=== PATIENT | female | born 1970 | race Caucasian/White ===

== ENCOUNTER → 2016-11-17 | Outpatient (CLI) | payer BC ==
--- NOTE | 2016-11-17 16:37 | MAMMOGRAPHY REPORT ---
BILATERAL DIGITAL SCREENING MAMMOGRAM TOMOSYNTHESIS WITH CAD: 11/17/2016 CLINICAL HISTORY: Routine screening examination. TECHNIQUE: Breast tomosynthesis in addition to standard 2D mammography was performed. Current study was also evaluated with a Computer Aided Detection (CAD) system. COMPARISON: Comparison is made to exams dated: 11/12/2015 mammogram, 11/09/2014 mammogram, 11/06/2013 m ammogram - [facility], and 08/30/2012 mammogram - [facility]. BREAST COMPOSITION: The tissue of both breasts is heterogeneously dense, which may obscure small ma sses. FINDINGS: There are 2 questionable areas of architectural distortion in the lateral posterior left breast, only seen on the CC views (tomosynthesis slices 28/82 and 43/82), for which additional spot compression tomosynthesis HD views and possibly ultrasound are recommended. No other suspicious mass, architectural distortion or cluster of microcalcifications is seen bilater ally. IMPRESSION: ACR BI-RADS CATEGORY 0: INCOMPLETE EVALUATION: NEED ADDITIONAL IMAGING EVALUATION The 2 areas of questionable architectural distortion in the lateral posterior left breast need addit ional evaluation. The patient will be called to schedule an appointment. Approximately 10% of breast cancers are not detected with mammography. A negative mammographic repor t should not delay biopsy if a clinically suggestive mass is present. Ashli Mathew M.D. ay/:11/17/2016 15:56:49 Sanitation Director: Elizabeth WHEELER(Danii)(Andrew), [facility] letter sent: Addl Imaging 0 BI-RADS Code: ACR BI-RADS Category 0: Incomplete Evaluation: Need Additional Imaging Evaluation
== END | disposition home or self-care (01) ==
LOC: C.MAMM 08:03
PROVIDERS: ATTEND Obstetrics & Gynecology
DX: Z12.31 Encounter for screening mammogram for malignant neoplasm of breast (principal); N64.89 Other specified disorders of breast

== ENCOUNTER → 2016-11-27 | Outpatient (CLI) | payer BC ==
--- NOTE | 2016-12-01 07:36 | MAMMOGRAPHY REPORT ---
UNILATERAL LEFT DIGITAL DIAGNOSTIC MAMMOGRAM TOMOSYNTHESIS: 11/27/2016 CLINICAL HISTORY: Callback from screening mammogram for questionable architectural distortion in the left breast. TECHNIQUE: Breast tomosynthesis in addition to standard 2D mammography was performed. Left CC and MLO 2-D and tomosynthesis spot compression views were obtained. COMPARISON: Comparison is made to exams dated: 11/17/2016 mammogram, 11/12/2015 mammogram, 11/06/2013 mammogram, 11/09/2014 mammogram - [facility], and 08/30/2012 mammogram - [facility]. BREAST COMPOSITION: The tissue of the left breast is heterogeneously dense, which may obscure small masses. FINDINGS: The 2 areas of possible architectural distortion seen within the left lateral breast on t he cc tomosynthesis images do not persist on the additional spot compression views, with appearance of these regions similar to prior exams on the additional views. The tissue in this region has the appearance of normal fibroglandular tissue without suspicious masses or areas of architectural disto rtion seen. Findings are benign and most compatible with normal fibroglandular tissue. IMPRESSION: ACR BI-RADS CATEGORY 2: BENIGN The questionable areas of architectural distortion in the left lateral breast do not persist on the additional views. Findings are benign and most compatible with normal fibroglandular tissue. There is no mammographic evidence of malignancy. A 1 year screening mammogram is recommended. The patien t has been verbally notified of the results. Approximately 10% of breast cancers are not detected with mammography. A negative mammographic repor t should not delay biopsy if a clinically suggestive mass is present. Asya Hermosillo M.D. ah/:11/27/2016 11:41:15 Geometry Professor: Elizabeth Alcantara RT(Danii)(Andrew), [facility] letter sent: Normal 11/09 BI-RADS Code: ACR BI-RADS Category 2: Benign
== END | disposition home or self-care (01) ==
LOC: C.MAMM 11:19
PROVIDERS: ATTEND Obstetrics & Gynecology
DX: R92.8 Other abnormal and inconclusive findings on diagnostic imaging of breast (principal)

== ENCOUNTER → 2017-02-11 | Outpatient (CLI) | payer BC ==
[2017-02-11 12:57] LABS: BASO % 0.4 %; BASO ABS # 0.03 K/uL (0-0.2); COMPLETE YES; EOS % 1.3 %; HEMATOCRIT 41.2 % (37-47); IG% 0.1 %; LYMPH % 21.4 %; LYMPH ABS # 1.45 K/uL (1.2-3.4); MEAN CELL VOLUME 80.6 fL (80-100); MEAN CORPUSCULAR HEMOGLOBIN 27.2 pg (25-34); MEAN CORPUSCULAR HGB CONC 33.7 g/dl (32-36); MEAN PLATELET VOLUME 11.6 fL (7.4-10.4); MONO % 7.8 %; PLATELET COUNT 193 K/uL (130-400); RED BLOOD COUNT 5.11 M/uL (4.2-5.4); WHITE BLOOD COUNT 6.79 K/uL (4.8-10.8)
[2017-02-11 13:21] LABS: BLOOD UREA NITROGEN 12 mg/dl (7-18); CALCIUM 8.7 mg/dl (8.5-10.1); CARBON DIOXIDE 24 mmol/L (21-32); CHLORIDE 112 mmol/L (98-107); CREATININE 0.91 mg/dl (0.60-1.20); GLUCOSE 92 mg/dl (70-99); SODIUM 142 mmol/L (136-145)
[2017-02-11 13:42] LABS: CHOLESTEROL 162 mg/dl (0-200); CHOLESTEROL/HDL RATIO 2.9; HDL CHOLESTEROL 55 mg/dl; LDL CHOLESTEROL CALCULATED 94 mg/dl; THYROID STIMULATING HORMONE 0.906 uIu/ml (0.300-4.500); TRIGLYCERIDES 65 mg/dl (0-150); VERY LOW DENSITY LIPOPROT CALC 13 mg/dl
== END | disposition home or self-care (01) ==
LOC: C.LABBFT 08:07
PROVIDERS: ATTEND Nurse Practitioner
DX: R53.83 Other fatigue (principal); Z13.6 Encounter for screening for cardiovascular disorders

== ENCOUNTER → 2017-11-22 | Outpatient (CLI) | payer BC ==
--- NOTE | 2017-11-22 14:48 | MAMMOGRAPHY REPORT ---
BILATERAL DIGITAL SCREENING MAMMOGRAM TOMOSYNTHESIS WITH CAD: 11/22/2017 CLINICAL HISTORY: Routine screening. Patient has no complaints. TECHNIQUE: Breast tomosynthesis in addition to standard 2D mammography was performed. Current study was also evaluated with a Computer Aided Detection (CAD) system. COMPARISON: Comparison is made to exams dated: 11/17/2016 mammogram, 11/27/2016 mammogram, 11/12/2015 ma mmogram, 11/09/2014 mammogram, 11/06/2013 mammogram - [facility], and 08/30/2012 mamm ogram - [facility]. BREAST COMPOSITION: The tissue of both breasts is heterogeneously dense, which may obscure small mas ses. FINDINGS: The parenchymal pattern is unchanged. No developing mass, architectural distortion or clus ter of suspicious microcalcifications is seen in either breast. IMPRESSION: ACR BI-RADS CATEGORY 2: BENIGN There is no mammographic evidence of malignancy. A 1 year screening mammogram is recommended. The pa tient will receive written notification of the results. Approximately 10% of breast cancers are not detected with mammography. A negative mammographic report should not delay biopsy if a clinically suggestive mass is present. Ashli Mathew M.D. ay/:11/22/2017 09:20:56 College Sports Assistant: Mirela WHEELER(Danii)(Andrew), [facility] letter sent: Normal 1/2 BI-RADS Code: ACR BI-RADS Category 2: Benign
== END ==
LOC: C.MAMM 07:55
PROVIDERS: ATTEND Obstetrics & Gynecology
DX: Z12.31 Encounter for screening mammogram for malignant neoplasm of breast (principal)